=== PATIENT | female | born 1970 | race Caucasian/White ===

== ENCOUNTER → 2016-12-31 | Outpatient (CLI) | payer OTHER ==
--- NOTE | 2016-12-31 11:39 | EXERCISE STRESS TEST ---
This stress test is being performed because of chest pain syndrome and a strong family history for coronary artery disease. The patient exercised for 10 minutes and 28 seconds on a standard Hilario protocol, attaining 12.5 METs and a peak heart rate of 196 beats per minute (greater than 100% predicted maximum). The test was terminated due to fatigue. The patient did not experience chest discomfort. Initial blood pressure was 114/83, this increased to 173/86 at peak exertion. Baseline EKG shows normal sinus rhythm without abnormalities. Throughout exercise recovery, the ST segments remained normal. There were no dysrhythmias. CONCLUSIONS: 1. Normal ECG treadmill test at 12.5 METs and peak heart rate of greater than 100% maximum predicted. This predicts a low probability of significant coronary artery disease. 2. Excellent exercise tolerance. 3. No exercise-induced chest pain. 4. No dysrhythmias.
== END | disposition home or self-care (01) ==
LOC: C.CPL 09:52
PROVIDERS: ATTEND Family Medicine
DX: R07.9 Chest pain, unspecified (principal)

== ENCOUNTER → 2017-01-09 | Outpatient (CLI) | payer OTHER | END | disposition home or self-care (01) | LOC: C.LABSPEC 10:49 | PROVIDERS: ATTEND Family Medicine | DX: E87.5 Hyperkalemia (principal) ==

== ENCOUNTER → 2017-09-04 | Outpatient (CLI) | payer OTHER ==
--- NOTE | 2017-09-04 15:57 | MAMMOGRAPHY REPORT ---
BILATERAL DIGITAL SCREENING MAMMOGRAM TOMOSYNTHESIS WITH CAD: 09/04/2017 TECHNIQUE: Breast tomosynthesis in addition to standard 2D mammography was performed. Current study was also evaluated with a Computer Aided Detection (CAD) system. COMPARISON: Comparison is made to exam dated: 02/11/2013 mammogram - [facility]. BREAST COMPOSITION: The tissue of both breasts is heterogeneously dense, which may obscure small mas ses. FINDINGS: No suspicious masses, calcifications, or areas of architectural distortion are noted in ei ther breast. There has been no significant interval change compared to prior exams. IMPRESSION: ACR BI-RADS CATEGORY 1: NEGATIVE There is no mammographic evidence of malignancy. A 1 year screening mammogram is recommended. The pa tient will receive written notification of the results. Approximately 10% of breast cancers are not detected with mammography. A negative mammographic report should not delay biopsy if a clinically suggestive mass is present. Harriet Higgins M.D. ah/:09/04/2017 14:16:58 [employer]: Santa REYES(R)(M), [facility] letter sent: Normal 1/2 BI-RADS Code: ACR BI-RADS Category 1: Negative
== END | disposition home or self-care (01) ==
LOC: C.MAMM 13:06
PROVIDERS: ATTEND Family Medicine
DX: Z12.31 Encounter for screening mammogram for malignant neoplasm of breast (principal)